=== PATIENT | male | born 1950 | race Caucasian/White ===

== ENCOUNTER 2017-06-04 10:17 | Inpatient (IN) | payer MEDICARE ==
[~2017-06-04] VITALS: Ht 172.7 cm; Wt 57.2 kg
--- NOTE | ~2017-06-04 | EKG ---
[place], [place] ELECTROCARDIOGRAM REPORT NAME: MARI HARRELL UNIT #: [id number] ROOM: 415 DOCTOR: DEMETRICE HARRIS,ROSARIO BIRTHDATE: [birth year] DOS: 06/04/2017 TIME: 1312 hours IMPRESSION: 1. Sinus rhythm. 2. Right bundle-branch block. 3. Lateral ST elevation, consider acute injury. 4. Normal QT interval. ROSARIO SURESH MD CM:EKGRPT:ELECTROCARDIOGRAM REPORT 1215 1321 ROSARIO SURESH MD
--- NOTE | ~2017-06-04 | EKG ---
[place], [place] ELECTROCARDIOGRAM REPORT NAME: MARI HARRELL UNIT #: [id number] ROOM: 415 DOCTOR: DEMETRICE HARRIS,ROSARIO BIRTHDATE: [birth year] DOS: 06/04/2017 TIME: 1041 hours. IMPRESSION: 1. Sinus rhythm. 2. Right bundle branch block. 3. Lateral ST elevation, consider acute injury. 4. Normal QT interval. ROSARIO SURESH MD CM:EKGRPT:ELECTROCARDIOGRAM REPORT 1213 1317 ROSARIO SURESH MD
--- NOTE | ~2017-06-04 | O ---
[place], [place] OPERATIVE NOTE NAME: MARI HARRELL UNIT #: [id number] ROOM: 415 DOCTOR: JORGE ALBERTO WASHBURN MD BIRTHDATE: [birth year] DOS: 06/06/2017 HISTORY OF PRESENT ILLNESS: The patient has presented with a chief complaint of atypical epigastric pain and eructation. The patient with pacemaker. PAST MEDICAL HISTORY: Hypertension, hyperlipidemia, and hemorrhoids. PAST SURGICAL HISTORY: Tonsillectomy and pacemaker. PROCEDURE: Today's procedure part of investigation is panendoscopy plus biopsy. PREMEDICATION: Versed and Diprivan. SCOPE: Olympus forward-viewing gastroscope Q10 video. REPORT: After putting the patient in left lateral and after application of lubricant to the scope, the scope was introduced. Thereafter, under direct visualization, advanced through the length of esophagus without difficulty. Gastric pouch was entered. Gastritis of mild degree seen. Duodenal bulb, second and third part within normal limits. Small Antral biopsy obtained for H. pylori. GI reflexion of the scope reveals cardia to be benign. Air was suctioned out. The patient was extubated and tolerated the procedure well. IMPRESSION: Mild gastritis. No hiatal hernia. No acute finding gastric and duodenal pouch. PLAN AND DISCUSSION: We will keep this patient on omeprazole 20 mg 1 every day to keep the possibilities of contribution from upper GI tract out of the picture. We already know that this patient has mild diffuse fatty infiltration of the liver. CT scan of the abdomen and chest diverticulosis and stents in the left common iliac and external iliac artery has been noticed. Prostatomegaly has been noticed. Supportive management as an outpatient would be recommended. There is no definitive finding in the CT scan neither on endoscopic evaluation. Wonder if he has diverticular issues in the splenic flexure to give him the sensation of distress in his left upper quadrant. [place], [place] OPERATIVE NOTE NAME: JULIO CESAREMMAMARI J UNIT #: [id number] ROOM: 415 DOCTOR: JORGE ALBERTO WASHBURN MD BIRTHDATE: [birth year] JORGE ALBERTO WASHBURN MD CM:OPRECORD:OPERATIVE NOTE 1314 1431 JORGE ALBERTO WASHBURN MD 06/06/17 1428 interface
--- NOTE | ~2017-06-04 | EKG ---
[place], [place] ELECTROCARDIOGRAM REPORT NAME: MARI HARRELL UNIT #: [id number] ROOM: [facility] DOCTOR: DEMETRICE HARRIS,ROSARIO BIRTHDATE: [birth year] DOS: 06/04/2017 TIME: 1626 hours. IMPRESSION: 1. Sinus rhythm. 2. Right bundle branch block. 3. Nonspecific ST-T changes. 4. Normal QT interval. ROSARIO SURESH MD CM:EKGRPT:ELECTROCARDIOGRAM REPORT 1200 1254 ROSARIO SURESH MD
--- NOTE | ~2017-06-04 | CON ---
[place], [place] REPORT OF CONSULTATION NAME: MARI HARRELL [facility] #: [id number] UNIT #: [id number] ROOM: 415 DOCTOR: MADDISON HARRISNARCISOCORIE BIRTHDATE: [birth year] DOS: 06/06/2017 HISTORY OF PRESENT ILLNESS: The patient is a 66-year-old who has presented with epigastric pain radiating to the left upper quadrant and periodically going to the back. The patient with a suggestion of persistent burping and eructation. The patient had to be admitted and Cardiology consult was addressed. PAST MEDICAL HISTORY: Hypertension, hyperlipidemia, and diabetes mellitus. This patient with peripheral vascular disease, cardiac dysrhythmia, hemorrhoid history. PAST SURGICAL HISTORY: Cardiac stents x 2, cardiac pacemaker, tonsillectomy. SOCIAL HISTORY: Passive smoker. Nonalcohol consumer. FAMILY HISTORY: Noncontributory. ALLERGIES: NITROGLYCERIN. MEDICATIONS: List has been reviewed including clopidogrel and aspirin. REVIEW OF SYSTEMS: HEENT: Denies double vision, blurred vision. RESPIRATORY: Denies shortness of breath. CARDIOVASCULAR: Denies acute typical chest pain. DIGESTIVE SYSTEM: Epigastric distress, eructation persistently. Left upper quadrant tenderness. PHYSICAL EXAMINATION: VITAL SIGNS: Stable, nontoxic. HEENT: Head normocephalic, nontraumatic. Mouth and buccal mucosa benign. NECK: Supple, no thyromegaly, no cervical lymphadenopathy. CHEST: Symmetric anatomy, equal expansion. No wheeze, no rhonchi. HEART: Normal sinus rhythm, no gallop, no murmur. ABDOMEN: Soft. No hepato-organomegaly, nonspecific tenderness left upper quadrant. No hepato-organomegaly. EXTREMITIES: No cyanosis, no pedal edema. NEUROLOGIC: Alert, oriented to time, place, person. IMPRESSION: Epigastric abdominal pain, atypical chest pain, persistent eructation, hypertension, hyperlipidemia, diabetes mellitus on clopidogrel and aspirin. LABORATORY DATA: Labs reviewed, records reviewed. CBC, initial H and H of 13.8 and 39. White blood cells 6.9. INR 0.9. Comprehensive metabolic panel, electrolyte balance, bilirubin 1.2. Chest x-ray normal, images of the chest. Troponin 0.015. CT scan of the chest was assessed. No acute findings, prostatomegaly, atrophy of the lower pole of the right kidney. Labs reviewed, records reviewed. Most recent troponin again remains normal. [place], [place] REPORT OF CONSULTATION [facility]: [id number] UNIT #: [id number] ROOM: 415 DOCTOR: JORGE ALBERTO WASHBURN MD BIRTHDATE: [birth year] PLAN: Consultation, Cardiology consultation has been reviewed and apparently they are planning to outpatient followup with the patient since no evidence of acute coronary syndrome was contemplated. Workup in progress. EGD today. JORGE ALBERTO WASHBURN MD CM:CONSTR:REPORT OF CONSULTATION 1230 06/07/17 0016 interface
--- NOTE | ~2017-06-04 | CON ---
[place], [place] REPORT OF CONSULTATION NAME[id number] UNIT #: [id number] ROOM: 415 [facility]: [birth year] DOS: 06/06/2017 CARDIOLOGY CONSULTATION HISTORY OF PRESENT ILLNESS: The patient came in with history of left upper quadrant discomfort and denies for any chest discomfort. No dyspnea, no syncope. The patient found to be hypotensive and we adjust the medications. Now, the patient has tachycardia rate of 110-120, readjusted the beta-macy and metoprolol tartrate 50 mg twice a day, explained to the patient that he consistently should take the medication and optimally reduce the dose of metoprolol to 12.5 mg daily. The patient had GI workup done and Gastroenterology doctor, Dr. Lopez, is going to see. The patient may have the scope done. No syncope or presyncope. The patient denies for any smoking or use any tobacco products. The patient does have permanent pacemaker, function is good. No chills. Denies any dyspnea. The patient came to the Emergency Room. The patient is on baby aspirin, initially 324 and the chest x-ray initially was unremarkable. PAST MEDICAL HISTORY: The patient has a history of hemorrhoids, dyslipidemia, hypertension, permanent pacemaker. PAST SURGICAL HISTORY: The patient also has tonsillectomy in the past. SOCIAL HISTORY: The patient denies any illicit drugs. No tobacco use. No alcohol. Unremarkable. FAMILY HISTORY: Also noncontributory as per the cardiovascular status concern. The patient cannot take nitroglycerin, it drops the pressure significantly. PHYSICAL EXAMINATION: VITAL SIGNS: Heart rate is 105, blood pressure is stable, 115/47, 130/56, 120/56. NECK: No jugular venous distension noted. No carotid bruits. Neck is supple. LUNGS: No rales. ABDOMEN: Soft. HEART: S1 and S2 regular. No gallop. EXTREMITIES: No peripheral edema noted. Posterior tibialis 2+. No focal neurological deficits. Denies for any pain in the back of his legs with the walking. RECTAL AND GENITAL: Deferred unrelated. EKG, sinus rhythm, right bundle branch block. No evidence of transmural infarction, basically remains sinus rhythm. IMPRESSION: No evidence of acute coronary syndrome. No congestive heart failure. Permanent pacemaker, borderline low blood pressure probably iatrogenic and low volume. Once the fluids given and adjust the medication, pressure is stabilized. [place], [place] REPORT OF CONSULTATION NAME: MARI HARRELL UNIT #: [id number] ROOM: [facility] DOCTOR: OLGA HARRIS [facility] BIRTHDATE: [birth year] PLAN: Optimize the medical therapy and also optimize the heart rate, explained to the patient. We will follow the patient as an outpatient for further management. No further cardiovascular complaint at this time. This patient is an established patient for me, I have seen in the past. Thank you very for asking me to see the patient. We will follow the patient. TIFFANY ESPINOZA MD CM:CONSTR:REPORT OF CONSULTATION 06/06/17 0815 interface
--- NOTE | ~2017-06-04 | EKG ---
[place], [place] ELECTROCARDIOGRAM REPORT NAME: MARI HARRELL UNIT #: [id number] ROOM: 415 DOCTOR: DEMETRICE HARRIS,ROSARIO BIRTHDATE: [birth year] DOS: 06/05/2017 TIME: 8:07 a.m. IMPRESSION: 1. Sinus rhythm. 2. Right bundle-branch block. 3. Anterolateral ST elevation, consider acute injury. 4. Normal QT interval. ROSARIO SURESH MD CM:EKGRPT:ELECTROCARDIOGRAM REPORT 1147 1211 ROSARIO SURESH MD
[~2017-06-04 10:17] MED LIST: ASPIRIN81 M1 PO; DAYPRO600 M1 PO; IMDUR30 MG; LISINOPRIL20 MG PO; LOPRESSOR25 MG PO; MOTRIN800 MG PO; PLAVIX75 MG PO; PLETAL100 MG PO; PRAVASTATIN SOD40 MG PO; ROBAXIN750 MG PO; VICODIN 5/500 505 MG PO
[2017-06-04 10:23] VITALS: BP 148/71
[2017-06-04 10:45] LABS: BASO % 0.6 % (0.0-1.0); EOS # 0.3 10*3/uL (0.0-0.4); EOS % 4.5 % (1.0-4.0); HEMATOCRIT 39.1 % (42.0-52.0); HEMOGLOBIN 13.8 g/dl (14.0-18.0); LYMPH % 15.1 % (27.0-41.0); MEAN CELL VOLUME 88.1 fl (80.0-94.0); MEAN CORPUSCULAR HGB 31.1 pg (27.0-31.0); MEAN CORPUSCULAR HGB CONC 35.3 g/dl (33.0-37.0); MEAN PLATELET VOLUME 9.6 fl (9.6-12.3); MONO # 0.6 10*3/uL (0.1-1.0); MONO % 8.2 % (3.0-9.0); NEUT # 4.9 10*3/uL (2.3-7.9); NEUT % 71.3 % (47.0-73.0); PLATELET COUNT AUTOMATED 183 10*3/uL (130-400); RED BLOOD COUNT 4.44 10*6/uL (4.50-5.90); RED CELL DISTRI WIDTH 12.9 % (0-14.5); WHITE BLOOD COUNT 6.9 10*3/uL (4.8-10.8)
[2017-06-04 10:55] LABS: INTERNATIONAL NORM RATIO 0.9 (2.0-3.5)
[2017-06-04 11:02] LABS: ALKALINE PHOSPHATASE 94 U/L (45-117); BUN 18 mg/dl (7-24); CHLORIDE 96 mmol/L (98-107); CREATININE 1.23 mg/dL (0.70-1.30); POTASSIUM 4.7 mmol/L (3.5-5.1); SGOT/AST 25 IU/L (3-35); SGPT/ALT 40 U/L (12-78); SODIUM 132 mmol/L (136-145); TOTAL PROTEIN 7.2 gm/dL (6.4-8.2)
[2017-06-04 11:10] LABS: TROPONIN I < 0.015 ng/ml (<0.045)
[2017-06-04 11:34] VITALS: BP 151/72
[2017-06-04 12:05] VITALS: BP 157/73
[2017-06-04 12:13] VITALS: BP 157/73
[2017-06-04 16:00] VITALS: BP 137/81
[2017-06-04 20:00] VITALS: BP 104/51
[2017-06-05] VITALS (7 sets, daily range): BP systolic 56–126; BP diastolic 40–71
[2017-06-05 05:57] LABS: BASO % 0.6 % (0.0-1.0); EOS # 0.3 10*3/uL (0.0-0.4); EOS % 4.5 % (1.0-4.0); HEMATOCRIT 34.7 % (42.0-52.0); HEMOGLOBIN 12.6 g/dl (14.0-18.0); LYMPH # 0.9 10*3/uL (1.3-4.4); LYMPH % 13.6 % (27.0-41.0); MEAN CELL VOLUME 88.1 fl (80.0-94.0); MEAN CORPUSCULAR HGB CONC 36.3 g/dl (33.0-37.0); MEAN PLATELET VOLUME 9.9 fl (9.6-12.3); MONO # 0.5 10*3/uL (0.1-1.0); MONO % 7.3 % (3.0-9.0); NEUT % 73.9 % (47.0-73.0); PLATELET COUNT AUTOMATED 179 10*3/uL (130-400); RED BLOOD COUNT 3.94 10*6/uL (4.50-5.90); RED CELL DISTRI WIDTH 12.7 % (0-14.5); WHITE BLOOD COUNT 6.7 10*3/uL (4.8-10.8)
[2017-06-05 06:10] LABS: ALBUMIN 3.3 gm/dl (3.1-4.5); ALKALINE PHOSPHATASE 79 U/L (45-117); BUN 25 mg/dl (7-24); CHLORIDE 98 mmol/L (98-107); CHOLESTEROL 151 mg/dL (<200); CREATININE 1.51 mg/dL (0.70-1.30); HDL CHOLESTEROL 41 mg/dl (40-60); LDL CHOLESTEROL 78 mg/dL (9-159); LIPASE 147 U/L (73-393); PHOSPHOROUS 4.7 mg/dL (2.5-4.9); POTASSIUM 5.5 mmol/L (3.5-5.1); SGOT/AST 22 IU/L (3-35); SGPT/ALT 31 U/L (12-78); SODIUM 132 mmol/L (136-145); TOTAL PROTEIN 6.2 gm/dL (6.4-8.2); TRIGLYCERIDES 158 mg/dl (<150); VLDL CHOLESTEROL 32 mg/dL (6-40)
[2017-06-05 06:32] LABS: ACT PARTIAL THROMBO TIME 21.4 SECONDS (20.8-31.5)
[2017-06-05 07:34] LABS: VITAMIN D, 25-HYDROXY 11.6 ng/mL (30-100)
[2017-06-06] VITALS (9 sets, daily range): BP systolic 81–140; BP diastolic 34–71
[2017-06-06 06:02] LABS: BASO % 0.8 % (0.0-1.0); EOS # 0.4 10*3/uL (0.0-0.4); EOS % 7.6 % (1.0-4.0); HEMATOCRIT 34.3 % (42.0-52.0); LYMPH # 1.2 10*3/uL (1.3-4.4); LYMPH % 24.5 % (27.0-41.0); MEAN CELL VOLUME 88.9 fl (80.0-94.0); MEAN CORPUSCULAR HGB 31.1 pg (27.0-31.0); MONO # 0.5 10*3/uL (0.1-1.0); MONO % 9.9 % (3.0-9.0); NEUT # 2.8 10*3/uL (2.3-7.9); PLATELET COUNT AUTOMATED 162 10*3/uL (130-400); RED BLOOD COUNT 3.86 10*6/uL (4.50-5.90); RED CELL DISTRI WIDTH 12.9 % (0-14.5); WHITE BLOOD COUNT 4.9 10*3/uL (4.8-10.8)
[2017-06-06 06:28] LABS: ALBUMIN 3.4 gm/dl (3.1-4.5); ALKALINE PHOSPHATASE 75 U/L (45-117); BUN 25 mg/dl (7-24); CHLORIDE 103 mmol/L (98-107); CREATININE 1.21 mg/dL (0.70-1.30); SGOT/AST 17 IU/L (3-35); SGPT/ALT 28 U/L (12-78); SODIUM 136 mmol/L (136-145); TOTAL PROTEIN 5.9 gm/dL (6.4-8.2)
[2017-06-06 07:07] LABS: POTASSIUM 4.5 mmol/L (3.5-5.1)
[2017-06-06] MEDS ORDERED: METFORMIN500 MG PO (16:02)
[2017-06-06] MEDS ORDERED: FLOMAX0.4 MG PO (16:02)
[2017-06-06] MEDS ORDERED: LISINOPRIL2.5 MG PO (16:02)
[2017-06-06] MEDS ORDERED: OMEPRAZOLE MAGN20 MG PO (16:02)
== END 2017-06-06 17:17 | disposition home or self-care (01) | DRG 313 ==
LOC: ED 10:17 → 4E 11:29 → EDHOLD 11:29 → 4E 11:36
PROVIDERS: Internal Medicine; Internal Medicine Gastroenterology; Student in an Organized Health Care Education/Training Program
PROC: 0DB68ZX Excision of Stomach, Via Natural or Artificial Opening Endoscopic, Diagnostic (ICD-10-PCS; principal; 2017-06-06)
DX: R07.89 Other chest pain (principal); I25.10 Atherosclerotic heart disease of native coronary artery without angina pectoris; I42.9 Cardiomyopathy, unspecified; E11.51 Type 2 diabetes mellitus with diabetic peripheral angiopathy without gangrene; I11.0 Hypertensive heart disease with heart failure; I95.9 Hypotension, unspecified; I50.22 Chronic systolic (congestive) heart failure; E11.65 Type 2 diabetes mellitus with hyperglycemia; E83.41 Hypermagnesemia; E87.8 Other disorders of electrolyte and fluid balance, not elsewhere classified; E87.1 Hypo-osmolality and hyponatremia; Z68.1 Body mass index [BMI] 19.9 or less, adult; R07.81 Pleurodynia; R14.2 Eructation; D64.9 Anemia, unspecified; E80.6 Other disorders of bilirubin metabolism; D72.810 Lymphocytopenia; K29.70 Gastritis, unspecified, without bleeding; K64.9 Unspecified hemorrhoids; E78.5 Hyperlipidemia, unspecified; N40.0 Benign prostatic hyperplasia without lower urinary tract symptoms; R63.4 Abnormal weight loss; K57.90 Diverticulosis of intestine, part unspecified, without perforation or abscess without bleeding; K76.0 Fatty (change of) liver, not elsewhere classified; K21.9 Gastro-esophageal reflux disease without esophagitis; J44.9 Chronic obstructive pulmonary disease, unspecified; K59.00 Constipation, unspecified; Z95.5 Presence of coronary angioplasty implant and graft; Z95.0 Presence of cardiac pacemaker; Z87.891 Personal history of nicotine dependence; I25.2 Old myocardial infarction; Z82.49 Family history of ischemic heart disease and other diseases of the circulatory system; Z90.49 Acquired absence of other specified parts of digestive tract; Z82.0 Family history of epilepsy and other diseases of the nervous system; Z88.8 Allergy status to other drugs, medicaments and biological substances; Z79.899 Other long term (current) drug therapy; Z79.02 Long term (current) use of antithrombotics/antiplatelets

== ENCOUNTER → 2017-06-14 | Outpatient (CLI) | payer SELFPAY ==
[~2017-06-14] MED LIST changes: +FLOMAX0.4 MG PO; +LISINOPRIL2.5 MG PO; +METFORMIN500 MG PO; +OMEPRAZOLE MAGN20 MG PO
== END | disposition home or self-care (01) ==
LOC: RESCLI 03:29
DX: Z09 Encounter for follow-up examination after completed treatment for conditions other than malignant neoplasm (principal); K92.2 Gastrointestinal hemorrhage, unspecified; K59.00 Constipation, unspecified; E78.5 Hyperlipidemia, unspecified; E11.9 Type 2 diabetes mellitus without complications; K21.9 Gastro-esophageal reflux disease without esophagitis; I73.9 Peripheral vascular disease, unspecified; N40.1 Benign prostatic hyperplasia with lower urinary tract symptoms; I25.10 Atherosclerotic heart disease of native coronary artery without angina pectoris; I10 Essential (primary) hypertension; R63.4 Abnormal weight loss; Z76.89 Persons encountering health services in other specified circumstances

== ENCOUNTER → 2017-06-20 | Outpatient (CLI) | payer MEDICARE ==
[2017-06-20 10:15] LABS: BASO # 0.1 10*3/uL (0.0-0.1); EOS # 0.3 10*3/uL (0.0-0.4); EOS % 5.6 % (1.0-4.0); HEMATOCRIT 33.4 % (42.0-52.0); HEMOGLOBIN 12.1 g/dl (14.0-18.0); LYMPH % 16.2 % (27.0-41.0); MEAN CELL VOLUME 88.6 fl (80.0-94.0); MEAN CORPUSCULAR HGB 32.1 pg (27.0-31.0); MEAN CORPUSCULAR HGB CONC 36.2 g/dl (33.0-37.0); MEAN PLATELET VOLUME 10.1 fl (9.6-12.3); MONO # 0.5 10*3/uL (0.1-1.0); MONO % 8.7 % (3.0-9.0); NEUT # 4.2 10*3/uL (2.3-7.9); NEUT % 68.2 % (47.0-73.0); PLATELET COUNT AUTOMATED 203 10*3/uL (130-400); RED BLOOD COUNT 3.77 10*6/uL (4.50-5.90); RED CELL DISTRI WIDTH 13.1 % (0-14.5); WHITE BLOOD COUNT 6.1 10*3/uL (4.8-10.8)
== END | disposition home or self-care (01) ==
LOC: LAB 09:17
PROVIDERS: Internal Medicine
DX: K92.2 Gastrointestinal hemorrhage, unspecified (principal)

== ENCOUNTER → 2017-06-21 | Outpatient (CLI) | payer SELFPAY | END | disposition home or self-care (01) | LOC: RESCLI 03:52 | DX: E11.9 Type 2 diabetes mellitus without complications (principal); K59.00 Constipation, unspecified; E78.5 Hyperlipidemia, unspecified; K21.9 Gastro-esophageal reflux disease without esophagitis; I73.9 Peripheral vascular disease, unspecified; N40.1 Benign prostatic hyperplasia with lower urinary tract symptoms; I25.10 Atherosclerotic heart disease of native coronary artery without angina pectoris; I10 Essential (primary) hypertension; R63.4 Abnormal weight loss; K64.9 Unspecified hemorrhoids ==

== ENCOUNTER 2017-08-24 09:54 | Inpatient (IN) | payer MEDICARE ==
[~2017-08-24] VITALS: Ht 172.7 cm; Wt 53.2 kg
--- NOTE | ~2017-08-24 | O ---
[place], [place] OPERATIVE NOTE NAME: MARI HARRELL UNIT #: [id number] ROOM: 515 DOCTOR: JORGE ALBERTO WASHBURN MD BIRTHDATE: [birth year] DOS: 08/26/2017 INDICATIONS: The patient has presented with dysuria, abdominal pain and meanwhile, he has been find on CT scan, suspected the sigmoid colon mass. His white blood cell was 14. H and H of 12 and 36. Lactic acid was 3.1. CT scan of the abdomen had been reviewed and concerns addressed. Therefore, a colonoscopy has been organized. PAST MEDICAL HISTORY: Gastroesophageal reflux, BPH, hypertension, cardiac dysrhythmia. PAST SURGICAL HISTORY: Pacemaker, cardiac stent, tonsillectomy. SOCIAL HISTORY: Has stopped smoking, nonalcohol consumer. FAMILY HISTORY: Noncontributory. ALLERGIES: TO NITROGLYCERIN. MEDICATIONS: List has been reviewed. PROCEDURE: Today's procedure part of investigation is colonoscopy plus polypectomy. PREMEDICATION: Versed and propofol. SCOPE: Olympus folding colonoscope 10L video. REPORT: After putting the patient in left lateral position and application of lubricant to the scope, the scope was introduced. Thereafter, under direct visualization, advanced through the length of colon with some difficulty. Difficulty with not only extreme tortuosity of sigmoid colon, also liquid stool throughout the entire colon. Visualization became practically impossible mid transverse colon and onward. Polypoid lesion sessile in character also with piecemeal polypectomy from mid transverse colon removed. The patient's air was then suctioned out. No obstruction in sigmoid colon seen, tolerated the procedure well. IMPRESSION: Retained stool, tortuous colon, redundant colon. Sessile polypoid lesion in mid transverse colon, status post piecemeal polypectomy. PLAN AND DISCUSSION: Supportive management. We are going to see how he clinically does and in future if he complies, we are going to organize a colonoscopy while off of the aspirin and antiplatelets stable. Next colonoscopy in 10 years unless patient has symptoms for which follow-up should be sooner. [place], [place] OPERATIVE NOTE NAME: MARI HARRELL UNIT #: [id number] ROOM: 515 DOCTOR: JORGE ALBERTO WASHBURN MD BIRTHDATE: [birth year] JORGE ALBERTO WASHBURN MD CM:NANDAORD:OPERATIVE NOTE 1520 1545 JORGE ALBERTO WASHBURN MD 08/31/17 1700 interface
[2017-08-24 09:54] VITALS: BP 105/51
[2017-08-24 10:19] LABS: BASO % 0.2 % (0.0-1.0); EOS % 0.1 % (1.0-4.0); HEMATOCRIT 36.6 % (42.0-52.0); HEMOGLOBIN 12.8 g/dl (14.0-18.0); LYMPH # 0.3 10*3/uL (1.3-4.4); LYMPH % 2.2 % (27.0-41.0); MEAN CELL VOLUME 91.3 fl (80.0-94.0); MEAN CORPUSCULAR HGB 31.9 pg (27.0-31.0); MEAN PLATELET VOLUME 10.1 fl (9.6-12.3); MONO # 1.2 10*3/uL (0.1-1.0); MONO % 7.5 % (3.0-9.0); NEUT # 13.7 10*3/uL (2.3-7.9); NEUT % 89.2 % (47.0-73.0); PLATELET COUNT AUTOMATED 182 10*3/uL (130-400); RED BLOOD COUNT 4.01 10*6/uL (4.50-5.90); RED CELL DISTRI WIDTH 13.2 % (0-14.5); WHITE BLOOD COUNT 15.4 10*3/uL (4.8-10.8)
[2017-08-24 10:28] LABS: ACT PARTIAL THROMBO TIME 25.9 SECONDS (20.8-31.5); INTERNATIONAL NORM RATIO 0.9 (2.0-3.5)
[2017-08-24 10:37] LABS: ALBUMIN 3.6 gm/dl (3.1-4.5); ALKALINE PHOSPHATASE 169 U/L (45-117); BUN 31 mg/dl (7-24); CHLORIDE 90 mmol/L (98-107); CREATININE 1.29 mg/dL (0.70-1.30); POTASSIUM 4.2 mmol/L (3.5-5.1); SGOT/AST 49 IU/L (3-35); SGPT/ALT 169 U/L (12-78); SODIUM 127 mmol/L (136-145); TOTAL PROTEIN 7.4 gm/dL (6.4-8.2)
[2017-08-24 10:40] LABS: TROPONIN I < 0.015 ng/ml (<0.045)
[2017-08-24 11:00] LABS: BILIRUBIN 2+ (NEGATIVE); BLOOD 3+ (NEGATIVE); CLARITY CLOUDY (CLEAR); COLOR YELLOW (YELLOW); GLUCOSE NEGATIVE (NEGATIVE); KETONE 3+ (NEGATIVE); LEUKO ESTERASE 2+ (NEGATIVE); NITRITE NEGATIVE (NEGATIVE); PH 5.5 (5.0-9.0); SPECIFIC GRAVITY >= 1.030 (1.005-1.030)
[2017-08-24 11:11] LABS: BACTERIA 4+; RBC 21-30 rbc/hpf (0-2); WBC TNTC wbc/hpf (0-5)
[2017-08-24 12:14] VITALS: BP 132/62
[2017-08-24] MEDS ORDERED: CENTRUM SILVER1 EAC3 PO (12:37)
[2017-08-24] MEDS ORDERED: METFORMIN850 MG PO (12:39)
[2017-08-24] MEDS ORDERED: ASPIRIN CHEWABL81 MG PO (12:41)
[2017-08-24] MEDS ORDERED: ADVIL,MOTRIN,R200 MG PO (12:49)
[2017-08-24 16:00] VITALS: BP 108/58
[2017-08-24 20:00] VITALS: BP 155/49
[2017-08-25] VITALS: BP 147/67
[2017-08-25 07:23] LABS: BASO % 0.1 % (0.0-1.0); EOS % 0.1 % (1.0-4.0); HEMATOCRIT 33.2 % (42.0-52.0); HEMOGLOBIN 11.5 g/dl (14.0-18.0); LYMPH # 0.4 10*3/uL (1.3-4.4); LYMPH % 3.9 % (27.0-41.0); MEAN CELL VOLUME 90.5 fl (80.0-94.0); MEAN CORPUSCULAR HGB 31.3 pg (27.0-31.0); MEAN CORPUSCULAR HGB CONC 34.6 g/dl (33.0-37.0); MEAN PLATELET VOLUME 10.2 fl (9.6-12.3); MONO % 10.4 % (3.0-9.0); NEUT # 7.8 10*3/uL (2.3-7.9); PLATELET COUNT AUTOMATED 164 10*3/uL (130-400); RED BLOOD COUNT 3.67 10*6/uL (4.50-5.90); RED CELL DISTRI WIDTH 13.1 % (0-14.5); WHITE BLOOD COUNT 9.2 10*3/uL (4.8-10.8)
[2017-08-25 07:41] LABS: CHLORIDE 95 mmol/L (98-107); CREATININE 0.86 mg/dL (0.70-1.30); PHOSPHOROUS 1.6 mg/dL (2.5-4.9); POTASSIUM 4.5 mmol/L (3.5-5.1); SODIUM 130 mmol/L (136-145)
[2017-08-25 07:47] LABS: BUN 16 mg/dl (7-24)
[2017-08-25 08:00] VITALS: BP 169/69
[2017-08-25 12:00] VITALS: BP 122/56
[2017-08-25 16:00] VITALS: BP 155/77
[2017-08-25 20:00] VITALS: BP 172/81
[2017-08-26] VITALS (8 sets, daily range): BP systolic 128–173; BP diastolic 65–85
[2017-08-26 06:41] LABS: BASO % 0.3 % (0.0-1.0); EOS # 0.1 10*3/uL (0.0-0.4); EOS % 1.3 % (1.0-4.0); HEMATOCRIT 31.5 % (42.0-52.0); HEMOGLOBIN 10.7 g/dl (14.0-18.0); LYMPH # 0.6 10*3/uL (1.3-4.4); LYMPH % 8.1 % (27.0-41.0); MEAN CELL VOLUME 90.8 fl (80.0-94.0); MEAN CORPUSCULAR HGB 30.8 pg (27.0-31.0); MEAN PLATELET VOLUME 10.2 fl (9.6-12.3); MONO # 1.1 10*3/uL (0.1-1.0); MONO % 15.4 % (3.0-9.0); NEUT # 5.3 10*3/uL (2.3-7.9); NEUT % 74.6 % (47.0-73.0); PLATELET COUNT AUTOMATED 162 10*3/uL (130-400); RED BLOOD COUNT 3.47 10*6/uL (4.50-5.90); RED CELL DISTRI WIDTH 13.1 % (0-14.5); WHITE BLOOD COUNT 7.1 10*3/uL (4.8-10.8)
[2017-08-26 07:14] LABS: BUN 14 mg/dl (7-24); CHLORIDE 99 mmol/L (98-107); CREATININE 0.82 mg/dL (0.70-1.30); POTASSIUM 4.5 mmol/L (3.5-5.1); SODIUM 133 mmol/L (136-145)
[2017-08-26] MEDS ORDERED: CIPRO500 MG PO (16:25)
== END 2017-08-26 18:00 | disposition home or self-care (01) | DRG 872 ==
LOC: ED 09:54 → EDHOLD 11:17 → 5E 11:17
PROVIDERS: Emergency Medicine; Family Medicine; Internal Medicine
PROC: 0DBL8ZZ Excision of Transverse Colon, Via Natural or Artificial Opening Endoscopic (ICD-10-PCS; principal; 2017-08-26)
DX: A41.9 Sepsis, unspecified organism (principal); E11.51 Type 2 diabetes mellitus with diabetic peripheral angiopathy without gangrene; E87.2 Acidosis; E87.8 Other disorders of electrolyte and fluid balance, not elsewhere classified; E87.1 Hypo-osmolality and hyponatremia; N39.0 Urinary tract infection, site not specified; N40.0 Benign prostatic hyperplasia without lower urinary tract symptoms; K21.9 Gastro-esophageal reflux disease without esophagitis; E11.65 Type 2 diabetes mellitus with hyperglycemia; R79.89 Other specified abnormal findings of blood chemistry; I10 Essential (primary) hypertension; R65.20 Severe sepsis without septic shock; E78.5 Hyperlipidemia, unspecified; R31.9 Hematuria, unspecified; R74.0 Nonspecific elevation of levels of transaminase and lactic acid dehydrogenase [LDH]; R00.0 Tachycardia, unspecified; E83.41 Hypermagnesemia; E80.6 Other disorders of bilirubin metabolism; Z79.899 Other long term (current) drug therapy; Z79.84 Long term (current) use of oral hypoglycemic drugs; Z79.4 Long term (current) use of insulin; Z79.82 Long term (current) use of aspirin; Z88.8 Allergy status to other drugs, medicaments and biological substances; Z95.0 Presence of cardiac pacemaker; Z82.0 Family history of epilepsy and other diseases of the nervous system; Z82.49 Family history of ischemic heart disease and other diseases of the circulatory system; Z83.3 Family history of diabetes mellitus; Z80.9 Family history of malignant neoplasm, unspecified; I25.2 Old myocardial infarction

== ENCOUNTER 2017-08-29 02:09 | Emergency (ER) | payer MEDICARE ==
[~2017-08-29] VITALS: Ht 172.7 cm; Wt 53.1 kg
[~2017-08-29 02:09] MED LIST changes: +ADVIL,MOTRIN,R200 MG PO; +ASPIRIN CHEWABL81 MG PO; +CENTRUM SILVER1 EAC3 PO; +CIPRO500 MG PO; +METFORMIN850 MG PO
[2017-08-29 02:12] VITALS: BP 145/78
[2017-08-29 02:48] LABS: BASO % 0.5 % (0.0-1.0); EOS # 0.2 10*3/uL (0.0-0.4); EOS % 3.7 % (1.0-4.0); HEMATOCRIT 31.5 % (42.0-52.0); HEMOGLOBIN 11.3 g/dl (14.0-18.0); LYMPH # 0.8 10*3/uL (1.3-4.4); LYMPH % 13.4 % (27.0-41.0); MEAN CELL VOLUME 86.8 fl (80.0-94.0); MEAN CORPUSCULAR HGB 31.1 pg (27.0-31.0); MEAN CORPUSCULAR HGB CONC 35.9 g/dl (33.0-37.0); MEAN PLATELET VOLUME 9.1 fl (9.6-12.3); MONO # 0.7 10*3/uL (0.1-1.0); NEUT # 3.9 10*3/uL (2.3-7.9); NEUT % 68.9 % (47.0-73.0); PLATELET COUNT AUTOMATED 263 10*3/uL (130-400); RED BLOOD COUNT 3.63 10*6/uL (4.50-5.90); RED CELL DISTRI WIDTH 12.7 % (0-14.5); WHITE BLOOD COUNT 5.7 10*3/uL (4.8-10.8)
[2017-08-29 03:03] LABS: ALBUMIN 2.7 gm/dl (3.1-4.5); ALKALINE PHOSPHATASE 112 U/L (45-117); BUN 15 mg/dl (7-24); CHLORIDE 96 mmol/L (98-107); CREATININE 1.01 mg/dL (0.70-1.30); LIPASE 94 U/L (73-393); POTASSIUM 3.9 mmol/L (3.5-5.1); SGOT/AST 25 IU/L (3-35); SGPT/ALT 56 U/L (12-78); SODIUM 133 mmol/L (136-145); TOTAL PROTEIN 5.8 gm/dL (6.4-8.2); TROPONIN I < 0.015 ng/ml (<0.045)
[2017-08-29 04:15] LABS: BILIRUBIN NEGATIVE (NEGATIVE); BLOOD NEGATIVE (NEGATIVE); CLARITY CLEAR (CLEAR); COLOR YELLOW (YELLOW); GLUCOSE NEGATIVE (NEGATIVE); KETONE TRACE (NEGATIVE); LEUKO ESTERASE NEGATIVE (NEGATIVE); NITRITE NEGATIVE (NEGATIVE); PH 7.5 (5.0-9.0); UROBILINOGEN 0.2 E.U./dl (0.2-1.0)
[2017-08-29 04:22] LABS: WBC 0-2 wbc/hpf (0-5)
[2017-08-29] MEDS ORDERED: NORCO 5-325 TA1 EACH PO (04:42)
[2017-08-29] MEDS ORDERED: MIRALAX POWDER255 G1 PO (04:42)
== END 2017-08-29 04:45 | disposition home or self-care (01) ==
LOC: ED 02:09
PROVIDERS: Emergency Medicine Emergency Medical Services
DX: R10.9 Unspecified abdominal pain (principal); I10 Essential (primary) hypertension; E78.5 Hyperlipidemia, unspecified; I25.2 Old myocardial infarction; E11.9 Type 2 diabetes mellitus without complications; K21.9 Gastro-esophageal reflux disease without esophagitis; Z88.8 Allergy status to other drugs, medicaments and biological substances; Z79.899 Other long term (current) drug therapy; Z79.82 Long term (current) use of aspirin; Z87.891 Personal history of nicotine dependence

== ENCOUNTER → 2017-09-13 | Outpatient (CLI) | payer MEDICARE ==
[~2017-09-13] MED LIST changes: +MIRALAX POWDER255 G1 PO; +NORCO 5-325 TA1 EACH PO
[2017-09-13 16:03] LABS: BASO % 0.4 % (0.0-1.0); EOS # 0.2 10*3/uL (0.0-0.4); EOS % 3.2 % (1.0-4.0); HEMATOCRIT 38.2 % (42.0-52.0); HEMOGLOBIN 13.3 g/dl (14.0-18.0); LYMPH # 1.1 10*3/uL (1.3-4.4); LYMPH % 15.5 % (27.0-41.0); MEAN CELL VOLUME 89.5 fl (80.0-94.0); MEAN CORPUSCULAR HGB 31.1 pg (27.0-31.0); MEAN CORPUSCULAR HGB CONC 34.8 g/dl (33.0-37.0); MEAN PLATELET VOLUME 9.6 fl (9.6-12.3); MONO # 0.8 10*3/uL (0.1-1.0); MONO % 10.7 % (3.0-9.0); NEUT # 5.1 10*3/uL (2.3-7.9); NEUT % 69.9 % (47.0-73.0); PLATELET COUNT AUTOMATED 258 10*3/uL (130-400); RED BLOOD COUNT 4.27 10*6/uL (4.50-5.90); RED CELL DISTRI WIDTH 13.8 % (0-14.5); WHITE BLOOD COUNT 7.3 10*3/uL (4.8-10.8)
[2017-09-13 16:20] LABS: ALBUMIN 4.2 gm/dl (3.1-4.5); ALKALINE PHOSPHATASE 77 U/L (45-117); BUN 24 mg/dl (7-24); CHLORIDE 96 mmol/L (98-107); CREATININE 1.16 mg/dL (0.70-1.30); POTASSIUM 4.7 mmol/L (3.5-5.1); SGOT/AST 7 IU/L (3-35); SGPT/ALT 25 U/L (12-78); SODIUM 131 mmol/L (136-145); TOTAL PROTEIN 7.5 gm/dL (6.4-8.2)
== END | disposition home or self-care (01) ==
LOC: RESCLI 01:31
PROVIDERS: Internal Medicine
DX: Z09 Encounter for follow-up examination after completed treatment for conditions other than malignant neoplasm (principal); I10 Essential (primary) hypertension; I25.10 Atherosclerotic heart disease of native coronary artery without angina pectoris; E11.9 Type 2 diabetes mellitus without complications; E78.5 Hyperlipidemia, unspecified; I73.9 Peripheral vascular disease, unspecified; K21.9 Gastro-esophageal reflux disease without esophagitis; K92.2 Gastrointestinal hemorrhage, unspecified; K59.00 Constipation, unspecified; N40.1 Benign prostatic hyperplasia with lower urinary tract symptoms; R63.4 Abnormal weight loss; Z87.891 Personal history of nicotine dependence

== ENCOUNTER 2017-11-01 13:34 | Inpatient (IN) | payer MEDICARE ==
[~2017-11-01] VITALS: Ht 162.6 cm; Wt 50.9 kg
--- NOTE | ~2017-11-01 | EKG ---
[place], [place] ELECTROCARDIOGRAM REPORT NAME: MARI HARRELL UNIT #: [id number] ROOM: 405 DOCTOR: DIANA DRAFT REPORT BIRTHDATE: [birth year] [facility] Test Date: 2017-11-01 Test Time: 14:33:58 Pat Name: MARI HARRELL Department: Room: 405 Gender: M [employer] Up Worker: : 1950 Requested By: BRIE BRIZUELA Order Number: [id number] Reading MD: Michael Rodriguez MD Measurements Intervals [place] Rate: 68 P: 63 DC: 166 QRS: 69 QRSD: 132 T: 61 QT: 424 QTc: 451 Interpretive Statements Sinus rhythm Right bundle branch block Electronically Signed On 11-01-2017 20:37:39 PDT by Michael Rodriguez MD CM:EKGRPT:ELECTROCARDIOGRAM REPORT 1433 36 BRIE BALLESTEROS DRAFT REPORT BRIE BRIZUELA DO
[2017-11-01 13:42] VITALS: BP 159/74
[2017-11-01 14:42] LABS: BASO % 0.5 % (0.0-1.0); EOS # 0.3 10*3/uL (0.0-0.4); EOS % 4.7 % (1.0-4.0); HEMATOCRIT 33.6 % (42.0-52.0); HEMOGLOBIN 12.1 g/dl (14.0-18.0); LYMPH # 0.9 10*3/uL (1.3-4.4); LYMPH % 14.6 % (27.0-41.0); MEAN CELL VOLUME 88.9 fl (80.0-94.0); MEAN PLATELET VOLUME 9.3 fl (9.6-12.3); MONO # 0.5 10*3/uL (0.1-1.0); MONO % 8.8 % (3.0-9.0); NEUT # 4.2 10*3/uL (2.3-7.9); NEUT % 71.1 % (47.0-73.0); PLATELET COUNT AUTOMATED 231 10*3/uL (130-400); RED BLOOD COUNT 3.78 10*6/uL (4.50-5.90); RED CELL DISTRI WIDTH 13.4 % (0-14.5); WHITE BLOOD COUNT 5.9 10*3/uL (4.8-10.8)
[2017-11-01 14:50] LABS: INTERNATIONAL NORM RATIO 0.9 (2.0-3.5)
[2017-11-01 14:58] LABS: ALBUMIN 4.1 gm/dl (3.1-4.5); ALKALINE PHOSPHATASE 78 U/L (45-117); BUN 26 mg/dl (7-24); CHLORIDE 99 mmol/L (98-107); CREATININE 0.93 mg/dL (0.70-1.30); LIPASE 147 U/L (73-393); POTASSIUM 4.3 mmol/L (3.5-5.1); SGOT/AST 16 IU/L (3-35); SGPT/ALT 24 U/L (12-78); SODIUM 134 mmol/L (136-145); TOTAL PROTEIN 7.2 gm/dL (6.4-8.2)
[2017-11-01 15:03] LABS: TROPONIN I < 0.015 ng/ml (<0.045)
[2017-11-01 16:28] VITALS: BP 180/81
[2017-11-01 16:55] LABS: BILIRUBIN 2+ (NEGATIVE); BLOOD NEGATIVE (NEGATIVE); CLARITY CLEAR (CLEAR); COLOR YELLOW (YELLOW); GLUCOSE NEGATIVE (NEGATIVE); KETONE TRACE (NEGATIVE); LEUKO ESTERASE NEGATIVE (NEGATIVE); NITRITE NEGATIVE (NEGATIVE); PH 5.5 (5.0-9.0); SPECIFIC GRAVITY >= 1.030 (1.005-1.030)
[2017-11-01 17:00] LABS: URINE AMPHETAMINES < 1000 (1000ng/ml); URINE BARBITURATES < 200 (200ng/ml); URINE BENZODIAZEPINES < 200 (200ng/ml); URINE CANNABINOIDS (THC) < 50 (50ng/ml); URINE COCAINE < 300 (300ng/ml); URINE METHADONE < 300 (300ng/ml); URINE OPIATES < 300 (300ng/ml)
[2017-11-01 17:02] LABS: URINE PHENCYCLIDINE < 25 (25ng/ml)
[2017-11-01 17:16] VITALS: BP 180/80
[2017-11-01 17:20] LABS: BACTERIA 1+; MUCOUS 2+
[2017-11-01 17:35] VITALS: BP 174/82
[2017-11-01] MEDS ORDERED: DICYCLOMINE HCL10 MG PO (18:22)
[2017-11-01 18:40] VITALS: BP 186/86
[2017-11-01] MEDS ORDERED: LOPRESSOR50 M1 PO (18:52)
[2017-11-01 20:00] VITALS: BP 203/89
[2017-11-02] VITALS: BP 116/50
[2017-11-02 03:30] LABS: BASO # 0.1 10*3/uL (0.0-0.1); BASO % 0.9 % (0.0-1.0); EOS # 0.3 10*3/uL (0.0-0.4); EOS % 6.2 % (1.0-4.0); HEMATOCRIT 30.1 % (42.0-52.0); HEMOGLOBIN 10.5 g/dl (14.0-18.0); LYMPH # 1.1 10*3/uL (1.3-4.4); LYMPH % 19.8 % (27.0-41.0); MEAN CELL VOLUME 90.1 fl (80.0-94.0); MEAN CORPUSCULAR HGB 31.4 pg (27.0-31.0); MEAN CORPUSCULAR HGB CONC 34.9 g/dl (33.0-37.0); MEAN PLATELET VOLUME 9.2 fl (9.6-12.3); MONO # 0.5 10*3/uL (0.1-1.0); MONO % 9.5 % (3.0-9.0); NEUT # 3.4 10*3/uL (2.3-7.9); NEUT % 63.4 % (47.0-73.0); PLATELET COUNT AUTOMATED 190 10*3/uL (130-400); RED BLOOD COUNT 3.34 10*6/uL (4.50-5.90); RED CELL DISTRI WIDTH 13.3 % (0-14.5); WHITE BLOOD COUNT 5.3 10*3/uL (4.8-10.8)
[2017-11-02 03:47] LABS: ALBUMIN 3.3 gm/dl (3.1-4.5); ALKALINE PHOSPHATASE 66 U/L (45-117); BUN 22 mg/dl (7-24); CHLORIDE 102 mmol/L (98-107); CREATININE 1.05 mg/dL (0.70-1.30); PHOSPHOROUS 3.8 mg/dL (2.5-4.9); POTASSIUM 4.2 mmol/L (3.5-5.1); SGOT/AST 11 IU/L (3-35); SGPT/ALT 20 U/L (12-78); SODIUM 137 mmol/L (136-145); TOTAL PROTEIN 5.9 gm/dL (6.4-8.2)
[2017-11-02 08:00] VITALS: BP 122/63
[2017-11-02 09:44] VITALS: BP 142/74
[2017-11-02 12:00] VITALS: BP 150/65
[2017-11-02 16:00] VITALS: BP 146/65
[2017-11-02 20:00] VITALS: BP 148/60
[2017-11-03] VITALS: BP 147/68
[2017-11-03 06:48] LABS: BASO % 0.6 % (0.0-1.0); EOS # 0.3 10*3/uL (0.0-0.4); EOS % 4.3 % (1.0-4.0); HEMATOCRIT 27.8 % (42.0-52.0); LYMPH # 0.8 10*3/uL (1.3-4.4); LYMPH % 12.1 % (27.0-41.0); MEAN CELL VOLUME 89.4 fl (80.0-94.0); MEAN CORPUSCULAR HGB 32.2 pg (27.0-31.0); MEAN PLATELET VOLUME 9.3 fl (9.6-12.3); MONO # 0.5 10*3/uL (0.1-1.0); MONO % 7.5 % (3.0-9.0); NEUT # 4.7 10*3/uL (2.3-7.9); NEUT % 75.2 % (47.0-73.0); PLATELET COUNT AUTOMATED 189 10*3/uL (130-400); RED BLOOD COUNT 3.11 10*6/uL (4.50-5.90); RED CELL DISTRI WIDTH 13.4 % (0-14.5); WHITE BLOOD COUNT 6.3 10*3/uL (4.8-10.8)
[2017-11-03 07:01] LABS: BUN 18 mg/dl (7-24); CHLORIDE 101 mmol/L (98-107); CREATININE 0.94 mg/dL (0.70-1.30); POTASSIUM 4.3 mmol/L (3.5-5.1); SODIUM 136 mmol/L (136-145)
[2017-11-03 12:00] VITALS: BP 132/58
[2017-11-03] MEDS ORDERED: ZESTRIL10 MG PO (14:33)
[2017-11-03] MEDS ORDERED: [UNRECOGNIZED DRUG - OTHER] PO (15:25)
== END 2017-11-03 15:56 | disposition home or self-care (01) | DRG 312 ==
LOC: ED 13:34 → EDHOLD 17:29 → 4E 17:29
PROVIDERS: Family Medicine; Internal Medicine
DX: I95.1 Orthostatic hypotension (principal); E11.51 Type 2 diabetes mellitus with diabetic peripheral angiopathy without gangrene; E79.9 Disorder of purine and pyrimidine metabolism, unspecified; E44.1 Mild protein-calorie malnutrition; E11.65 Type 2 diabetes mellitus with hyperglycemia; I07.1 Rheumatic tricuspid insufficiency; E87.1 Hypo-osmolality and hyponatremia; Z68.1 Body mass index [BMI] 19.9 or less, adult; R82.2 Biliuria; I16.0 Hypertensive urgency; R82.71 Bacteriuria; K64.9 Unspecified hemorrhoids; R62.7 Adult failure to thrive; D64.9 Anemia, unspecified; D72.810 Lymphocytopenia; I10 Essential (primary) hypertension; E78.1 Pure hyperglyceridemia; I73.9 Peripheral vascular disease, unspecified; I25.10 Atherosclerotic heart disease of native coronary artery without angina pectoris; K21.9 Gastro-esophageal reflux disease without esophagitis; I34.0 Nonrheumatic mitral (valve) insufficiency; E78.5 Hyperlipidemia, unspecified; N40.0 Benign prostatic hyperplasia without lower urinary tract symptoms; Z95.0 Presence of cardiac pacemaker; I25.2 Old myocardial infarction; Z87.891 Personal history of nicotine dependence; Z79.899 Other long term (current) drug therapy; Z88.8 Allergy status to other drugs, medicaments and biological substances; Z81.8 Family history of other mental and behavioral disorders

== ENCOUNTER → 2017-11-11 | Outpatient (CLI) | payer MEDICARE ==
[~2017-11-11] MED LIST changes: +DICYCLOMINE HCL10 MG PO; +LOPRESSOR50 M1 PO; +ZESTRIL10 MG PO; +[UNRECOGNIZED DRUG - OTHER] PO
== END | disposition home or self-care (01) ==
LOC: RESCLI 08:03
DX: Z09 Encounter for follow-up examination after completed treatment for conditions other than malignant neoplasm (principal); I10 Essential (primary) hypertension; I25.10 Atherosclerotic heart disease of native coronary artery without angina pectoris; K59.00 Constipation, unspecified; E78.5 Hyperlipidemia, unspecified; E11.9 Type 2 diabetes mellitus without complications; K21.9 Gastro-esophageal reflux disease without esophagitis; I73.9 Peripheral vascular disease, unspecified; N40.0 Benign prostatic hyperplasia without lower urinary tract symptoms; G62.9 Polyneuropathy, unspecified

== ENCOUNTER → 2017-12-21 | Outpatient (CLI) | payer MEDICARE ==
[~2017-12-21] MED LIST changes: +AMITRIPTYLINE25 MG PO; +BYETTA5 MCG/0.02 SC; +JANUVIA25 MG PO; +KEFLEX 500 MG E2 CAP PO; +Lopressor25 MG PO; +MIDODRINE HCL5 M1 PO; +PROAIR HFA8.5 GM INH
== END | disposition home or self-care (01) ==
LOC: LAB 10:52
DX: E11.9 Type 2 diabetes mellitus without complications (principal)

== ENCOUNTER → 2017-12-23 | Outpatient (CLI) | payer MEDICARE | END | disposition home or self-care (01) | LOC: RESCLI 02:13 | DX: I10 Essential (primary) hypertension (principal); E78.5 Hyperlipidemia, unspecified; E11.9 Type 2 diabetes mellitus without complications; K21.9 Gastro-esophageal reflux disease without esophagitis; I73.9 Peripheral vascular disease, unspecified; N40.0 Benign prostatic hyperplasia without lower urinary tract symptoms; I25.10 Atherosclerotic heart disease of native coronary artery without angina pectoris; I95.89 Other hypotension; R63.6 Underweight; E86.0 Dehydration; Z79.899 Other long term (current) drug therapy; Z95.5 Presence of coronary angioplasty implant and graft; Z88.8 Allergy status to other drugs, medicaments and biological substances ==

== ENCOUNTER → 2017-12-29 | Outpatient (CLI) | payer MEDICARE | END | disposition home or self-care (01) | LOC: US 13:26 | DX: I70.203 Unspecified atherosclerosis of native arteries of extremities, bilateral legs (principal); I70.0 Atherosclerosis of aorta; K59.00 Constipation, unspecified; R11.0 Nausea ==

== ENCOUNTER → 2018-01-05 | Outpatient (CLI) | payer MEDICARE ==
[2018-01-05 16:10] LABS: BILIRUBIN NEGATIVE (NEGATIVE); BLOOD NEGATIVE (NEGATIVE); CLARITY CLEAR (CLEAR); COLOR YELLOW (YELLOW); GLUCOSE TRACE (NEGATIVE); KETONE NEGATIVE (NEGATIVE); LEUKO ESTERASE NEGATIVE (NEGATIVE); NITRITE NEGATIVE (NEGATIVE); PH 5.5 (5.0-9.0); SPECIFIC GRAVITY >= 1.030 (1.005-1.030)
[2018-01-05 16:44] LABS: BACTERIA 1+; EPITHELIAL CELLS 0-2; MUCOUS 1+
== END | disposition home or self-care (01) ==
LOC: LAB 15:27
PROVIDERS: Internal Medicine
DX: R30.0 Dysuria (principal)

== ENCOUNTER → 2018-02-17 | Outpatient (CLI) | payer MEDICARE ==
--- NOTE | ~2018-02-17 | EKG ---
[place], [place] ELECTROCARDIOGRAM REPORT NAME: MARI HARRELL UNIT #: [id number] ROOM: DOCTOR: DIANA DRAFT REPORT BIRTHDATE: [birth year] [facility] Test Date: 2018-02-17 Test Time: 16:02:11 Pat Name: MARI HARRELL Department: Room: Gender: M [employer] Plant Operator: Rissa Cannon : 1950 Requested By: FRANNIE ISBELL Order Number: [id number] Reading MD: Kodak Wyile MD Measurements Intervals [place] Rate: 119 P: 63 IA: 130 QRS: 75 QRSD: 121 T: 18 QT: 338 QTc: 476 Interpretive Statements Sinus tachycardia Ventricular premature complex Right bundle branch block Compared to ECG 01/29/2018 12:35:38 Ventricular premature complex(es) now present. Low voltage limb leads. Electronically Signed On 02-21-2018 10:01:45 PST by Kodak Wylie MD CM:EKGRPT:ELECTROCARDIOGRAM REPORT 1602 1001 FRANNIE BALLESTEROS DRAFT REPORT FRANNIE ISBELL DO
== END | disposition home or self-care (01) ==
LOC: RESCLI 09:32
DX: R00.0 Tachycardia, unspecified (principal); Z79.899 Other long term (current) drug therapy

== ENCOUNTER → 2018-07-12 | Outpatient (CLI) | payer MEDICARE | END | disposition home or self-care (01) | LOC: RESCLI 02:35 | DX: K59.00 Constipation, unspecified (principal); I25.10 Atherosclerotic heart disease of native coronary artery without angina pectoris; N40.0 Benign prostatic hyperplasia without lower urinary tract symptoms; G62.9 Polyneuropathy, unspecified; E11.51 Type 2 diabetes mellitus with diabetic peripheral angiopathy without gangrene; E78.5 Hyperlipidemia, unspecified; K21.9 Gastro-esophageal reflux disease without esophagitis; J44.9 Chronic obstructive pulmonary disease, unspecified; I95.1 Orthostatic hypotension; I50.9 Heart failure, unspecified; I25.2 Old myocardial infarction; Z79.899 Other long term (current) drug therapy; Z86.2 Personal history of diseases of the blood and blood-forming organs and certain disorders involving the immune mechanism; Z88.8 Allergy status to other drugs, medicaments and biological substances; Z87.891 Personal history of nicotine dependence ==

== ENCOUNTER → 2018-11-28 | Outpatient (CLI) | payer MEDICARE ==
[~2018-11-28] MED LIST changes: +NEURONTIN300 MG PO
== END | disposition home or self-care (01) ==
LOC: RESCLI 08:30
DX: K59.00 Constipation, unspecified (principal); J44.9 Chronic obstructive pulmonary disease, unspecified; I95.1 Orthostatic hypotension; E11.9 Type 2 diabetes mellitus without complications; I25.10 Atherosclerotic heart disease of native coronary artery without angina pectoris; I73.9 Peripheral vascular disease, unspecified; N40.0 Benign prostatic hyperplasia without lower urinary tract symptoms; G62.9 Polyneuropathy, unspecified; K21.9 Gastro-esophageal reflux disease without esophagitis; E78.5 Hyperlipidemia, unspecified; Z79.899 Other long term (current) drug therapy; Z87.891 Personal history of nicotine dependence

== ENCOUNTER → 2019-02-06 | Outpatient (CLI) | payer MEDICARE ==
[2019-02-06 16:02] LABS: BASO # 0.1 10*3/uL (0.0-0.1); BASO % 0.9 % (0.0-1.0); EOS # 0.6 10*3/uL (0.0-0.4); EOS % 8.7 % (1.0-4.0); HEMATOCRIT 38.5 % (42.0-52.0); HEMOGLOBIN 12.6 g/dl (14.0-18.0); LYMPH % 15.4 % (27.0-41.0); MEAN CELL VOLUME 94.1 fl (80.0-94.0); MEAN CORPUSCULAR HGB 30.8 pg (27.0-31.0); MEAN CORPUSCULAR HGB CONC 32.7 g/dl (33.0-37.0); MEAN PLATELET VOLUME 10.2 fl (9.6-12.3); MONO # 0.5 10*3/uL (0.1-1.0); MONO % 7.2 % (3.0-9.0); NEUT # 4.6 10*3/uL (2.3-7.9); NEUT % 67.5 % (47.0-73.0); PLATELET COUNT AUTOMATED 185 10*3/uL (130-400); RED BLOOD COUNT 4.09 10*6/uL (4.50-5.90); RED CELL DISTRI WIDTH 13.4 % (0-14.5); WHITE BLOOD COUNT 6.8 10*3/uL (4.8-10.8)
[2019-02-06 16:16] LABS: ALBUMIN 3.9 gm/dl (3.1-4.5); CREATININE 1.61 mg/dL (0.70-1.30); TOTAL PROTEIN 7.4 gm/dL (6.4-8.2)
[2019-02-07 11:07] LABS: CREATININE,URINE 86.6 mg/dL (Not Estab.); MICRO ALBUMIN/CRE RATIO <3.5 (0.0-30.0)
== END | disposition home or self-care (01) ==
LOC: RESCLI 01:46
PROVIDERS: Family Medicine
DX: Z13.39 Encounter for screening examination for other mental health and behavioral disorders (principal); Z01.89 Encounter for other specified special examinations; Z13.31 Encounter for screening for depression; K59.00 Constipation, unspecified; I95.1 Orthostatic hypotension; I25.10 Atherosclerotic heart disease of native coronary artery without angina pectoris; J44.9 Chronic obstructive pulmonary disease, unspecified; G62.9 Polyneuropathy, unspecified; N40.0 Benign prostatic hyperplasia without lower urinary tract symptoms; K21.9 Gastro-esophageal reflux disease without esophagitis; E78.5 Hyperlipidemia, unspecified; I50.32 Chronic diastolic (congestive) heart failure; E11.51 Type 2 diabetes mellitus with diabetic peripheral angiopathy without gangrene; J40 Bronchitis, not specified as acute or chronic; Z28.21 Immunization not carried out because of patient refusal; Z87.891 Personal history of nicotine dependence; Z79.899 Other long term (current) drug therapy; Z88.8 Allergy status to other drugs, medicaments and biological substances

== ENCOUNTER → 2019-03-13 | Outpatient (CLI) | payer MEDICARE | END | disposition home or self-care (01) | LOC: RESCLI 01:01 | DX: K59.00 Constipation, unspecified (principal); I95.1 Orthostatic hypotension; I25.10 Atherosclerotic heart disease of native coronary artery without angina pectoris; J44.9 Chronic obstructive pulmonary disease, unspecified; G62.9 Polyneuropathy, unspecified; N40.0 Benign prostatic hyperplasia without lower urinary tract symptoms; E11.51 Type 2 diabetes mellitus with diabetic peripheral angiopathy without gangrene; K21.9 Gastro-esophageal reflux disease without esophagitis; E78.5 Hyperlipidemia, unspecified; I50.32 Chronic diastolic (congestive) heart failure; I71.4 Abdominal aortic aneurysm, without rupture; Z79.899 Other long term (current) drug therapy; Z87.891 Personal history of nicotine dependence ==

== ENCOUNTER → 2019-05-21 | Outpatient (CLI) | payer MEDICARE ==
[2019-05-21 15:20] LABS: BASO # 0.1 10*3/uL (0.0-0.1); BASO % 1.1 % (0.0-1.0); EOS # 0.4 10*3/uL (0.0-0.4); EOS % 4.6 % (1.0-4.0); HEMATOCRIT 42.9 % (42.0-52.0); HEMOGLOBIN 14.6 g/dl (14.0-18.0); LYMPH # 1.1 10*3/uL (1.3-4.4); LYMPH % 12.1 % (27.0-41.0); MEAN CELL VOLUME 92.1 fl (80.0-94.0); MEAN CORPUSCULAR HGB 31.3 pg (27.0-31.0); MEAN PLATELET VOLUME 10.3 fl (9.6-12.3); MONO # 0.7 10*3/uL (0.1-1.0); MONO % 7.6 % (3.0-9.0); NEUT # 6.7 10*3/uL (2.3-7.9); NEUT % 74.4 % (47.0-73.0); PLATELET COUNT AUTOMATED 197 10*3/uL (130-400); RED BLOOD COUNT 4.66 10*6/uL (4.50-5.90); RED CELL DISTRI WIDTH 13.4 % (0-14.5)
[2019-05-21 15:36] LABS: ALBUMIN 4.1 gm/dl (3.1-4.5); CREATININE 1.64 mg/dL (0.70-1.30); POTASSIUM 4.6 mmol/L (3.5-5.1); TOTAL PROTEIN 7.8 gm/dL (6.4-8.2)
== END | disposition home or self-care (01) ==
LOC: RESCLI 13:13
PROVIDERS: Hospitalist
DX: I95.1 Orthostatic hypotension (principal); E11.9 Type 2 diabetes mellitus without complications; E78.5 Hyperlipidemia, unspecified; G62.9 Polyneuropathy, unspecified; N40.0 Benign prostatic hyperplasia without lower urinary tract symptoms; I25.10 Atherosclerotic heart disease of native coronary artery without angina pectoris; I73.9 Peripheral vascular disease, unspecified; K21.9 Gastro-esophageal reflux disease without esophagitis; I71.4 Abdominal aortic aneurysm, without rupture; I11.0 Hypertensive heart disease with heart failure; I50.32 Chronic diastolic (congestive) heart failure; K59.00 Constipation, unspecified; J44.9 Chronic obstructive pulmonary disease, unspecified; Z95.5 Presence of coronary angioplasty implant and graft; Z79.899 Other long term (current) drug therapy; Z90.89 Acquired absence of other organs; Z87.891 Personal history of nicotine dependence; Z88.8 Allergy status to other drugs, medicaments and biological substances

== ENCOUNTER → 2019-07-31 | Outpatient (CLI) | payer MEDICARE ==
[2019-07-31 10:37] LABS: BUN 19 mg/dl (7-24); CHLORIDE 105 mmol/L (98-107); CREATININE 1.42 mg/dL (0.70-1.30); POTASSIUM 4.1 mmol/L (3.5-5.1); SODIUM 138 mmol/L (136-145)
== END | disposition home or self-care (01) ==
LOC: LAB 09:43
PROVIDERS: Internal Medicine
DX: I50.32 Chronic diastolic (congestive) heart failure (principal)

== ENCOUNTER → 2019-10-30 | Outpatient (CLI) | payer MEDICARE | END | disposition home or self-care (01) | LOC: RESCLI 05:45 | DX: I25.10 Atherosclerotic heart disease of native coronary artery without angina pectoris (principal); I10 Essential (primary) hypertension; J44.9 Chronic obstructive pulmonary disease, unspecified; E11.9 Type 2 diabetes mellitus without complications; I95.1 Orthostatic hypotension; K59.00 Constipation, unspecified; I50.32 Chronic diastolic (congestive) heart failure; G62.9 Polyneuropathy, unspecified; K21.9 Gastro-esophageal reflux disease without esophagitis; N40.0 Benign prostatic hyperplasia without lower urinary tract symptoms; I73.9 Peripheral vascular disease, unspecified; E78.5 Hyperlipidemia, unspecified; Z11.59 Encounter for screening for other viral diseases; Z01.00 Encounter for examination of eyes and vision without abnormal findings; Z79.899 Other long term (current) drug therapy; Z98.890 Other specified postprocedural states; Z87.891 Personal history of nicotine dependence; Z88.8 Allergy status to other drugs, medicaments and biological substances ==

== ENCOUNTER → 2019-12-13 | Outpatient (CLI) | payer MEDICARE | END | disposition home or self-care (01) | LOC: RESCLI 00:49 | PROVIDERS: ATTEND Internal Medicine | DX: M70.30 Other bursitis of elbow, unspecified elbow (principal); R42 Dizziness and giddiness; R53.83 Other fatigue; I11.0 Hypertensive heart disease with heart failure; I50.32 Chronic diastolic (congestive) heart failure; I25.10 Atherosclerotic heart disease of native coronary artery without angina pectoris; I95.1 Orthostatic hypotension; G62.9 Polyneuropathy, unspecified; K21.9 Gastro-esophageal reflux disease without esophagitis; N40.0 Benign prostatic hyperplasia without lower urinary tract symptoms; I73.9 Peripheral vascular disease, unspecified; E78.5 Hyperlipidemia, unspecified; J44.9 Chronic obstructive pulmonary disease, unspecified; E11.9 Type 2 diabetes mellitus without complications; R29.6 Repeated falls; I25.2 Old myocardial infarction; Z79.899 Other long term (current) drug therapy; Z95.828 Presence of other vascular implants and grafts; Z98.890 Other specified postprocedural states; Z87.891 Personal history of nicotine dependence; Z88.8 Allergy status to other drugs, medicaments and biological substances ==

== ENCOUNTER → 2019-12-14 | Outpatient (CLI) | payer MEDICARE ==
[2019-12-14 07:37] LABS: BASO # 0.1 10*3/uL (0.0-0.1); BASO % 0.9 % (0.0-1.0); EOS # 0.5 10*3/uL (0.0-0.4); EOS % 9.3 % (1.0-4.0); HEMATOCRIT 38.4 % (42.0-52.0); LYMPH # 0.7 10*3/uL (1.3-4.4); LYMPH % 13.3 % (27.0-41.0); MEAN CELL VOLUME 91.2 fl (80.0-94.0); MEAN CORPUSCULAR HGB 31.1 pg (27.0-31.0); MEAN CORPUSCULAR HGB CONC 34.1 g/dl (33.0-37.0); MEAN PLATELET VOLUME 9.9 fl (9.6-12.3); MONO # 0.6 10*3/uL (0.1-1.0); MONO % 10.2 % (3.0-9.0); NEUT # 3.6 10*3/uL (2.3-7.9); NEUT % 66.1 % (47.0-73.0); PLATELET COUNT AUTOMATED 187 10*3/uL (130-400); RED BLOOD COUNT 4.21 10*6/uL (4.50-5.90); RED CELL DISTRI WIDTH 13.4 % (0-14.5); WHITE BLOOD COUNT 5.5 10*3/uL (4.8-10.8)
[2019-12-14 08:10] LABS: ALBUMIN 4.2 gm/dl (3.1-4.5); CREATININE 1.54 mg/dL (0.70-1.30); POTASSIUM 4.3 mmol/L (3.5-5.1); TOTAL PROTEIN 7.6 gm/dL (6.4-8.2)
[2019-12-14 08:17] LABS: THYROID STIM HORMONE (HS) 2.66 uIU/ml (0.358-4.75)
== END | disposition home or self-care (01) ==
LOC: LAB 07:06
PROVIDERS: Internal Medicine; ATTEND Internal Medicine
DX: E11.9 Type 2 diabetes mellitus without complications (principal); R53.83 Other fatigue; E78.5 Hyperlipidemia, unspecified; Z11.59 Encounter for screening for other viral diseases

== ENCOUNTER → 2019-12-19 | Outpatient (CLI) | payer MEDICARE | END | disposition home or self-care (01) | LOC: ORTHO 00:56 | PROVIDERS: ATTEND Psychiatry & Neurology Psychiatry | DX: M79.89 Other specified soft tissue disorders (principal); M25.522 Pain in left elbow ==

== ENCOUNTER → 2019-12-20 | Outpatient (CLI) | payer MEDICARE | END | disposition home or self-care (01) | LOC: CARD 14:29 | PROVIDERS: ATTEND Student in an Organized Health Care Education/Training Program | DX: R42 Dizziness and giddiness (principal); Z79.899 Other long term (current) drug therapy ==

== ENCOUNTER → 2019-12-21 | Outpatient (CLI) | payer MEDICARE | END | disposition home or self-care (01) | LOC: US 01:24 | PROVIDERS: ATTEND Student in an Organized Health Care Education/Training Program | DX: R42 Dizziness and giddiness (principal) ==

== ENCOUNTER → 2020-01-08 | Outpatient (CLI) | payer MEDICARE | END | disposition home or self-care (01) | LOC: RESCLI 00:35 | PROVIDERS: ATTEND Internal Medicine | DX: E11.9 Type 2 diabetes mellitus without complications (principal); I11.0 Hypertensive heart disease with heart failure; I50.32 Chronic diastolic (congestive) heart failure; K59.00 Constipation, unspecified; G62.9 Polyneuropathy, unspecified; I25.10 Atherosclerotic heart disease of native coronary artery without angina pectoris; I95.1 Orthostatic hypotension; K21.9 Gastro-esophageal reflux disease without esophagitis; N40.0 Benign prostatic hyperplasia without lower urinary tract symptoms; I73.9 Peripheral vascular disease, unspecified; E78.5 Hyperlipidemia, unspecified; J44.9 Chronic obstructive pulmonary disease, unspecified; Z79.899 Other long term (current) drug therapy; Z98.890 Other specified postprocedural states; Z87.891 Personal history of nicotine dependence; Z88.8 Allergy status to other drugs, medicaments and biological substances ==

== ENCOUNTER → 2020-04-23 | Outpatient (CLI) | payer MEDICARE | END | disposition home or self-care (01) | LOC: RESCLI 01:27 | PROVIDERS: ATTEND Internal Medicine Nephrology | DX: I11.0 Hypertensive heart disease with heart failure (principal); I50.32 Chronic diastolic (congestive) heart failure; I25.10 Atherosclerotic heart disease of native coronary artery without angina pectoris; I95.1 Orthostatic hypotension; E11.9 Type 2 diabetes mellitus without complications; J44.9 Chronic obstructive pulmonary disease, unspecified; G62.9 Polyneuropathy, unspecified; K21.9 Gastro-esophageal reflux disease without esophagitis; N40.0 Benign prostatic hyperplasia without lower urinary tract symptoms; I73.9 Peripheral vascular disease, unspecified; E78.5 Hyperlipidemia, unspecified; Z79.899 Other long term (current) drug therapy; Z88.8 Allergy status to other drugs, medicaments and biological substances ==

== ENCOUNTER → 2020-05-06 | Outpatient (CLI) | payer MEDICARE ==
[2020-05-06 15:44] LABS: BASO % 0.3 % (0.0-1.0); EOS # 0.4 10*3/uL (0.0-0.4); EOS % 4.7 % (1.0-4.0); HEMATOCRIT 39.1 % (42.0-52.0); LYMPH # 0.9 10*3/uL (1.3-4.4); LYMPH % 10.2 % (27.0-41.0); MEAN CELL VOLUME 90.5 fl (80.0-94.0); MEAN CORPUSCULAR HGB 29.9 pg (27.0-31.0); MEAN PLATELET VOLUME 10.4 fl (9.6-12.3); MONO # 0.7 10*3/uL (0.1-1.0); MONO % 7.8 % (3.0-9.0); NEUT # 6.9 10*3/uL (2.3-7.9); NEUT % 76.7 % (47.0-73.0); PLATELET COUNT AUTOMATED 169 10*3/uL (130-400); RED BLOOD COUNT 4.32 10*6/uL (4.50-5.90); RED CELL DISTRI WIDTH 13.4 % (0-14.5)
[2020-05-06 16:15] LABS: ALBUMIN 3.9 gm/dl (3.1-4.5); CREATININE 1.65 mg/dL (0.70-1.30); POTASSIUM 4.1 mmol/L (3.5-5.1)
== END | disposition home or self-care (01) ==
LOC: LAB 15:13
PROVIDERS: ATTEND Internal Medicine
DX: I50.32 Chronic diastolic (congestive) heart failure (principal); E11.9 Type 2 diabetes mellitus without complications; E78.5 Hyperlipidemia, unspecified

== ENCOUNTER → 2020-05-30 | Outpatient (CLI) | payer MEDICARE | END | disposition home or self-care (01) | LOC: RESCLI 01:06 | PROVIDERS: ATTEND Internal Medicine | DX: K21.9 Gastro-esophageal reflux disease without esophagitis (principal); N40.0 Benign prostatic hyperplasia without lower urinary tract symptoms; I11.0 Hypertensive heart disease with heart failure; I73.9 Peripheral vascular disease, unspecified; E78.5 Hyperlipidemia, unspecified; I50.32 Chronic diastolic (congestive) heart failure; J44.9 Chronic obstructive pulmonary disease, unspecified; G62.9 Polyneuropathy, unspecified; I25.10 Atherosclerotic heart disease of native coronary artery without angina pectoris; E11.9 Type 2 diabetes mellitus without complications; I95.1 Orthostatic hypotension; Z79.899 Other long term (current) drug therapy; Z87.891 Personal history of nicotine dependence; Z88.8 Allergy status to other drugs, medicaments and biological substances ==

== ENCOUNTER → 2020-09-09 | Outpatient (CLI) | payer MEDICARE | END | disposition home or self-care (01) | LOC: RESCLI 00:54 | PROVIDERS: ATTEND Internal Medicine | DX: G62.9 Polyneuropathy, unspecified (principal); J44.9 Chronic obstructive pulmonary disease, unspecified; I25.10 Atherosclerotic heart disease of native coronary artery without angina pectoris; E11.9 Type 2 diabetes mellitus without complications; E78.5 Hyperlipidemia, unspecified; K21.9 Gastro-esophageal reflux disease without esophagitis; N40.0 Benign prostatic hyperplasia without lower urinary tract symptoms; I11.0 Hypertensive heart disease with heart failure; I50.32 Chronic diastolic (congestive) heart failure; I95.1 Orthostatic hypotension; Z98.890 Other specified postprocedural states; Z95.828 Presence of other vascular implants and grafts; Z87.891 Personal history of nicotine dependence; Z88.8 Allergy status to other drugs, medicaments and biological substances ==

== ENCOUNTER → 2021-01-23 | Outpatient (CLI) | payer MEDICARE | END | disposition home or self-care (01) | LOC: RESCLI 00:14 | PROVIDERS: ATTEND Internal Medicine | DX: E11.9 Type 2 diabetes mellitus without complications (principal); I25.10 Atherosclerotic heart disease of native coronary artery without angina pectoris; I10 Essential (primary) hypertension; N40.0 Benign prostatic hyperplasia without lower urinary tract symptoms; E78.5 Hyperlipidemia, unspecified; K21.9 Gastro-esophageal reflux disease without esophagitis; J44.9 Chronic obstructive pulmonary disease, unspecified; I50.32 Chronic diastolic (congestive) heart failure; M25.512 Pain in left shoulder; I95.1 Orthostatic hypotension; I73.9 Peripheral vascular disease, unspecified; G62.9 Polyneuropathy, unspecified; K52.9 Noninfective gastroenteritis and colitis, unspecified; Z79.899 Other long term (current) drug therapy ==

== ENCOUNTER → 2021-06-02 | Outpatient (CLI) | payer MEDICARE | END | disposition home or self-care (01) | LOC: RESCLI 00:29 | PROVIDERS: ATTEND Internal Medicine | DX: R05.9 Cough, unspecified (principal); G62.9 Polyneuropathy, unspecified; N40.0 Benign prostatic hyperplasia without lower urinary tract symptoms; J44.9 Chronic obstructive pulmonary disease, unspecified; E11.9 Type 2 diabetes mellitus without complications; I95.1 Orthostatic hypotension; I10 Essential (primary) hypertension; I25.10 Atherosclerotic heart disease of native coronary artery without angina pectoris; I73.9 Peripheral vascular disease, unspecified; E78.5 Hyperlipidemia, unspecified; Z79.899 Other long term (current) drug therapy; Z87.891 Personal history of nicotine dependence; Z88.8 Allergy status to other drugs, medicaments and biological substances ==

== ENCOUNTER → 2021-10-19 | Outpatient (CLI) | payer MEDICARE | END | disposition home or self-care (01) | LOC: RESCLI 14:44 | PROVIDERS: ATTEND Internal Medicine | DX: I73.9 Peripheral vascular disease, unspecified (principal); I50.9 Heart failure, unspecified; E11.9 Type 2 diabetes mellitus without complications; J44.9 Chronic obstructive pulmonary disease, unspecified; I11.0 Hypertensive heart disease with heart failure; I25.10 Atherosclerotic heart disease of native coronary artery without angina pectoris; E78.5 Hyperlipidemia, unspecified; N40.0 Benign prostatic hyperplasia without lower urinary tract symptoms; I95.1 Orthostatic hypotension; G62.9 Polyneuropathy, unspecified; N52.9 Male erectile dysfunction, unspecified; K21.9 Gastro-esophageal reflux disease without esophagitis; R00.1 Bradycardia, unspecified; Z88.8 Allergy status to other drugs, medicaments and biological substances; Z79.899 Other long term (current) drug therapy; Z79.82 Long term (current) use of aspirin ==

== ENCOUNTER → 2021-10-20 | Outpatient (CLI) | payer MEDICARE ==
[2021-10-20 09:01] LABS: BASO # 0.1 10*3/uL (0.0-0.1); BASO % 0.9 % (0.0-1.0); EOS # 0.6 10*3/uL (0.0-0.4); HEMATOCRIT 45.3 % (42.0-52.0); LYMPH # 0.8 10*3/uL (1.3-4.4); LYMPH % 12.8 % (27.0-41.0); MEAN CELL VOLUME 91.7 fl (80.0-94.0); MEAN CORPUSCULAR HGB 30.8 pg (27.0-31.0); MEAN CORPUSCULAR HGB CONC 33.6 g/dl (33.0-37.0); MEAN PLATELET VOLUME 10.4 fl (9.6-12.3); MONO # 0.6 10*3/uL (0.1-1.0); MONO % 8.8 % (3.0-9.0); NEUT # 4.3 10*3/uL (2.3-7.9); NEUT % 68.2 % (47.0-73.0); PLATELET COUNT AUTOMATED 145 10*3/uL (130-400); RED BLOOD COUNT 4.94 10*6/uL (4.50-5.90); RED CELL DISTRI WIDTH 13.7 % (0-14.5); WHITE BLOOD COUNT 6.4 10*3/uL (4.8-10.8)
[2021-10-20 09:22] LABS: CREATININE 1.51 mg/dL (0.70-1.30); POTASSIUM 4.6 mmol/L (3.5-5.1)
[2021-10-20 09:23] LABS: TOTAL PROTEIN 6.9 gm/dL (6.4-8.2)
[2021-10-23 14:07] LABS: TESTOSTERONE FREE, (DIRECT) 7.7 pg/mL (6.6-18.1)
== END | disposition home or self-care (01) ==
LOC: LAB 08:33
PROVIDERS: Student in an Organized Health Care Education/Training Program; ATTEND Internal Medicine
DX: E11.9 Type 2 diabetes mellitus without complications (principal); E78.5 Hyperlipidemia, unspecified; N52.9 Male erectile dysfunction, unspecified

== ENCOUNTER 2021-11-16 09:05 | Emergency (ER) | payer MEDICARE ==
[~2021-11-16] VITALS: Ht 172.7 cm; Wt 66.7 kg
[2021-11-16 09:20] VITALS: BP 78/44
[2021-11-16 09:25] VITALS: BP 86/60
[2021-11-16 10:03] LABS: BASO # 0.1 10*3/uL (0.0-0.1); BASO % 0.7 % (0.0-1.0); EOS # 0.5 10*3/uL (0.0-0.4); EOS % 6.5 % (1.0-4.0); HEMATOCRIT 42.5 % (42.0-52.0); LYMPH # 0.8 10*3/uL (1.3-4.4); LYMPH % 10.4 % (27.0-41.0); MEAN CELL VOLUME 89.5 fl (80.0-94.0); MEAN CORPUSCULAR HGB 31.6 pg (27.0-31.0); MEAN CORPUSCULAR HGB CONC 35.3 g/dl (33.0-37.0); MEAN PLATELET VOLUME 10.6 fl (9.6-12.3); MONO # 0.5 10*3/uL (0.1-1.0); NEUT # 5.6 10*3/uL (2.3-7.9); NEUT % 75.3 % (47.0-73.0); PLATELET COUNT AUTOMATED 166 10*3/uL (130-400); RED BLOOD COUNT 4.75 10*6/uL (4.50-5.90); RED CELL DISTRI WIDTH 13.4 % (0-14.5); WHITE BLOOD COUNT 7.4 10*3/uL (4.8-10.8)
[2021-11-16] MEDS ORDERED: LASIX20 MG PO (10:12)
[2021-11-16] MEDS ORDERED: GABAPENTIN600 MG PO (10:12)
[2021-11-16] MEDS ORDERED: JARDIANCE25 MG PO (10:13)
[2021-11-16] MEDS ORDERED: LISINOPRIL5 MG PO (10:13)
[2021-11-16] MEDS ORDERED: ASPIRIN CHEWABL81 MG PO (10:13)
[2021-11-16] MEDS ORDERED: LIPITOR40 MG PO (10:14)
[2021-11-16] MEDS ORDERED: EFFEXOR XR37.5 MG PO (10:14)
[2021-11-16 10:19] LABS: ACT PARTIAL THROMBO TIME 27.9 SECONDS (20.0-32.1)
[2021-11-16 10:20] LABS: CREATININE 1.95 mg/dL (0.70-1.30); POTASSIUM 5.1 mmol/L (3.5-5.1); TOTAL PROTEIN 6.8 gm/dL (6.4-8.2)
[2021-11-16 10:39] VITALS: BP 119/55
[2021-11-16 11:46] VITALS: BP 135/80
== END 2021-11-16 12:32 | disposition admitted as inpatient to this hospital (09) ==
LOC: ED 09:05 → EDHOLD 12:23 → ED 12:32
PROVIDERS: Emergency Medicine
DX: I95.1 Orthostatic hypotension (principal); R42 Dizziness and giddiness; Z79.899 Other long term (current) drug therapy; Z90.89 Acquired absence of other organs; Z95.0 Presence of cardiac pacemaker; Z95.5 Presence of coronary angioplasty implant and graft; Z87.891 Personal history of nicotine dependence

== ENCOUNTER → 2021-11-19 | Outpatient (CLI) | payer MEDICARE ==
[~2021-11-19] MED LIST changes: +EFFEXOR XR37.5 MG PO; +GABAPENTIN600 MG PO; +JARDIANCE25 MG PO; +LASIX20 MG PO; +LIPITOR40 MG PO; +LISINOPRIL5 MG PO
== END | disposition home or self-care (01) ==
LOC: CARD 11-06 08:00
PROVIDERS: ATTEND Student in an Organized Health Care Education/Training Program
DX: R00.1 Bradycardia, unspecified (principal)

== ENCOUNTER → 2022-01-25 | Outpatient (CLI) | payer MEDICARE | END | disposition home or self-care (01) | LOC: RESCLI 01:56 | PROVIDERS: ATTEND Internal Medicine | DX: Z23 Encounter for immunization (principal); I11.0 Hypertensive heart disease with heart failure; I50.9 Heart failure, unspecified; J44.9 Chronic obstructive pulmonary disease, unspecified; I25.10 Atherosclerotic heart disease of native coronary artery without angina pectoris; I25.2 Old myocardial infarction; K21.9 Gastro-esophageal reflux disease without esophagitis; E11.51 Type 2 diabetes mellitus with diabetic peripheral angiopathy without gangrene; I95.1 Orthostatic hypotension; N40.0 Benign prostatic hyperplasia without lower urinary tract symptoms; G62.9 Polyneuropathy, unspecified; Z95.5 Presence of coronary angioplasty implant and graft; Z79.899 Other long term (current) drug therapy ==

== ENCOUNTER → 2022-03-09 | Outpatient (CLI) | payer MEDICARE | END | disposition home or self-care (01) | LOC: RESCLI 03:41 | PROVIDERS: ATTEND Internal Medicine | DX: I11.0 Hypertensive heart disease with heart failure (principal); I50.9 Heart failure, unspecified; I25.10 Atherosclerotic heart disease of native coronary artery without angina pectoris; J30.2 Other seasonal allergic rhinitis; E78.5 Hyperlipidemia, unspecified; E11.9 Type 2 diabetes mellitus without complications; N40.0 Benign prostatic hyperplasia without lower urinary tract symptoms; I73.9 Peripheral vascular disease, unspecified; G62.9 Polyneuropathy, unspecified; K21.9 Gastro-esophageal reflux disease without esophagitis; Z98.890 Other specified postprocedural states; Z95.5 Presence of coronary angioplasty implant and graft; Z87.891 Personal history of nicotine dependence; Z88.9 Allergy status to unspecified drugs, medicaments and biological substances; Z79.899 Other long term (current) drug therapy ==

== ENCOUNTER → 2022-07-26 | Outpatient (CLI) | payer MEDICARE ==
[2022-07-26 09:55] LABS: CHOLESTEROL 157 mg/dL (<200); LDL CHOLESTEROL 96 mg/dL (9-159); TRIGLYCERIDES 95 mg/dl (<150)
== END | disposition home or self-care (01) ==
LOC: RESCLI 01:44
PROVIDERS: Student in an Organized Health Care Education/Training Program; ATTEND Internal Medicine
DX: E11.9 Type 2 diabetes mellitus without complications (principal); J30.2 Other seasonal allergic rhinitis; J44.9 Chronic obstructive pulmonary disease, unspecified; I73.9 Peripheral vascular disease, unspecified; G62.9 Polyneuropathy, unspecified; I10 Essential (primary) hypertension; I25.10 Atherosclerotic heart disease of native coronary artery without angina pectoris; E78.5 Hyperlipidemia, unspecified; K21.9 Gastro-esophageal reflux disease without esophagitis; Z98.890 Other specified postprocedural states; Z95.5 Presence of coronary angioplasty implant and graft; Z87.891 Personal history of nicotine dependence; Z79.899 Other long term (current) drug therapy

== ENCOUNTER → 2023-01-11 | Outpatient (CLI) | payer MEDICARE | END | disposition home or self-care (01) | LOC: RESCLI 00:36 | PROVIDERS: ATTEND Internal Medicine | DX: J44.1 Chronic obstructive pulmonary disease with (acute) exacerbation (principal); E11.9 Type 2 diabetes mellitus without complications; I73.9 Peripheral vascular disease, unspecified; G62.9 Polyneuropathy, unspecified; E78.5 Hyperlipidemia, unspecified; I11.0 Hypertensive heart disease with heart failure; I50.9 Heart failure, unspecified; I25.10 Atherosclerotic heart disease of native coronary artery without angina pectoris; K21.9 Gastro-esophageal reflux disease without esophagitis; N40.0 Benign prostatic hyperplasia without lower urinary tract symptoms; Z87.891 Personal history of nicotine dependence; Z98.890 Other specified postprocedural states; Z79.899 Other long term (current) drug therapy ==

== ENCOUNTER → 2023-01-22 | Outpatient (CLI) | payer MEDICARE ==
[2023-01-22 09:18] LABS: BASO # 0.1 10*3/uL (0.0-0.1); BASO % 0.8 % (0.0-1.0); EOS # 0.7 10*3/uL (0.0-0.4); EOS % 9.5 % (1.0-4.0); HEMATOCRIT 43.8 % (42.0-52.0); LYMPH # 0.8 10*3/uL (1.3-4.4); LYMPH % 11.4 % (27.0-41.0); MEAN CELL VOLUME 91.4 fl (80.0-94.0); MEAN CORPUSCULAR HGB 31.9 pg (27.0-31.0); MEAN CORPUSCULAR HGB CONC 34.9 g/dl (33.0-37.0); MEAN PLATELET VOLUME 10.8 fl (9.6-12.3); MONO # 0.6 10*3/uL (0.1-1.0); MONO % 7.8 % (3.0-9.0); NEUT # 5.2 10*3/uL (2.3-7.9); NEUT % 70.2 % (47.0-73.0); PLATELET COUNT AUTOMATED 148 10*3/uL (130-400); RED BLOOD COUNT 4.79 10*6/uL (4.50-5.90); RED CELL DISTRI WIDTH 13.9 % (0-14.5); WHITE BLOOD COUNT 7.4 10*3/uL (4.8-10.8)
[2023-01-22 09:28] LABS: URINE CREATININE RANDOM 72.96 mg/dL
[2023-01-22 10:36] LABS: POTASSIUM 5.6 mmol/L (3.4-5.1); TOTAL PROTEIN 6.8 gm/dL (6.0-8.0)
== END | disposition home or self-care (01) ==
LOC: LAB 07:53
PROVIDERS: Student in an Organized Health Care Education/Training Program; ATTEND Student in an Organized Health Care Education/Training Program
DX: J44.1 Chronic obstructive pulmonary disease with (acute) exacerbation (principal); E11.9 Type 2 diabetes mellitus without complications; E78.5 Hyperlipidemia, unspecified; Z00.00 Encounter for general adult medical examination without abnormal findings

== ENCOUNTER → 2023-06-27 | Outpatient (CLI) | payer MEDICARE | END | disposition home or self-care (01) | LOC: RESCLI 00:34 | PROVIDERS: ATTEND Internal Medicine | DX: J44.1 Chronic obstructive pulmonary disease with (acute) exacerbation (principal); I10 Essential (primary) hypertension; E11.9 Type 2 diabetes mellitus without complications; N40.0 Benign prostatic hyperplasia without lower urinary tract symptoms; J44.9 Chronic obstructive pulmonary disease, unspecified; G62.9 Polyneuropathy, unspecified; I73.9 Peripheral vascular disease, unspecified; I25.10 Atherosclerotic heart disease of native coronary artery without angina pectoris; E78.5 Hyperlipidemia, unspecified; Z79.899 Other long term (current) drug therapy ==

== ENCOUNTER → 2024-02-09 | Outpatient (CLI) | payer MEDICARE | END | disposition home or self-care (01) | LOC: RESCLI 09:49 → RAD 09:49 | PROVIDERS: ATTEND Student in an Organized Health Care Education/Training Program | DX: K21.9 Gastro-esophageal reflux disease without esophagitis (principal); M21.371 Foot drop, right foot; N40.0 Benign prostatic hyperplasia without lower urinary tract symptoms; E11.40 Type 2 diabetes mellitus with diabetic neuropathy, unspecified; I25.10 Atherosclerotic heart disease of native coronary artery without angina pectoris; E11.51 Type 2 diabetes mellitus with diabetic peripheral angiopathy without gangrene; E78.5 Hyperlipidemia, unspecified; I11.0 Hypertensive heart disease with heart failure; I50.9 Heart failure, unspecified; K30 Functional dyspepsia; L98.9 Disorder of the skin and subcutaneous tissue, unspecified; Z98.890 Other specified postprocedural states; Z88.8 Allergy status to other drugs, medicaments and biological substances; Z87.891 Personal history of nicotine dependence; Z95.5 Presence of coronary angioplasty implant and graft; Z79.899 Other long term (current) drug therapy ==

== ENCOUNTER → 2024-02-14 | Outpatient (CLI) | payer MEDICARE ==
[2024-02-14 09:09] LABS: BASO # 0.1 10*3/uL (0.0-0.1); EOS # 0.7 10*3/uL (0.0-0.4); EOS % 9.9 % (1.0-4.0); HEMATOCRIT 47.7 % (42.0-52.0); MEAN CORPUSCULAR HGB CONC 33.8 g/dl (33.0-37.0); MEAN PLATELET VOLUME 10.2 fl (9.6-12.3); MONO # 0.5 10*3/uL (0.1-1.0); MONO % 6.9 % (3.0-9.0); NEUT # 4.8 10*3/uL (2.3-7.9); NEUT % 71.9 % (47.0-73.0); PLATELET COUNT AUTOMATED 145 10*3/uL (130-400); RED BLOOD COUNT 5.36 10*6/uL (4.50-5.90); RED CELL DISTRI WIDTH 14.2 % (0-14.5); WHITE BLOOD COUNT 6.7 10*3/uL (4.8-10.8)
[2024-02-14 09:35] LABS: POTASSIUM 4.8 mmol/L (3.4-5.1); TOTAL PROTEIN 6.9 gm/dL (6.0-8.0)
== END | disposition home or self-care (01) ==
LOC: LAB 08:43
PROVIDERS: Student in an Organized Health Care Education/Training Program; ATTEND Internal Medicine
DX: M48.061 Spinal stenosis, lumbar region without neurogenic claudication (principal); M21.371 Foot drop, right foot; E11.9 Type 2 diabetes mellitus without complications; I10 Essential (primary) hypertension; I25.10 Atherosclerotic heart disease of native coronary artery without angina pectoris; Z95.5 Presence of coronary angioplasty implant and graft

== ENCOUNTER → 2024-02-17 | Outpatient (CLI) | payer MEDICARE | END | disposition home or self-care (01) | LOC: US 01:59 → CT 11:00 | PROVIDERS: ATTEND Internal Medicine | DX: M21.371 Foot drop, right foot (principal); G93.89 Other specified disorders of brain; K30 Functional dyspepsia ==

== ENCOUNTER → 2024-05-10 | Outpatient (CLI) | payer MEDICARE | END | disposition home or self-care (01) | LOC: RESCLI 00:34 | PROVIDERS: ATTEND Student in an Organized Health Care Education/Training Program | DX: I25.10 Atherosclerotic heart disease of native coronary artery without angina pectoris (principal); I10 Essential (primary) hypertension; E11.51 Type 2 diabetes mellitus with diabetic peripheral angiopathy without gangrene; J44.9 Chronic obstructive pulmonary disease, unspecified; E11.9 Type 2 diabetes mellitus without complications; K21.9 Gastro-esophageal reflux disease without esophagitis; N40.0 Benign prostatic hyperplasia without lower urinary tract symptoms; E78.5 Hyperlipidemia, unspecified; M21.371 Foot drop, right foot; G93.5 Compression of brain; Z98.890 Other specified postprocedural states; Z79.899 Other long term (current) drug therapy; Z79.02 Long term (current) use of antithrombotics/antiplatelets ==

== ENCOUNTER → 2024-09-13 | Outpatient (CLI) | payer MEDICARE | END | disposition home or self-care (01) | LOC: RESCLI 10:18 | PROVIDERS: ATTEND Internal Medicine | DX: J44.1 Chronic obstructive pulmonary disease with (acute) exacerbation (principal); J32.9 Chronic sinusitis, unspecified; E78.5 Hyperlipidemia, unspecified; I73.9 Peripheral vascular disease, unspecified; I25.10 Atherosclerotic heart disease of native coronary artery without angina pectoris; N40.0 Benign prostatic hyperplasia without lower urinary tract symptoms; G62.9 Polyneuropathy, unspecified; E11.9 Type 2 diabetes mellitus without complications; I10 Essential (primary) hypertension; K21.9 Gastro-esophageal reflux disease without esophagitis; J44.9 Chronic obstructive pulmonary disease, unspecified; Z79.899 Other long term (current) drug therapy; Z88.8 Allergy status to other drugs, medicaments and biological substances; Z98.890 Other specified postprocedural states ==

== ENCOUNTER → 2024-11-01 | Outpatient (CLI) | payer MEDICARE ==
[~2024-11-01] MED LIST changes: +AMLODIPINE BESYL5 MG PO; +CLOPIDOGREL75 MG PO; +DEXCOM G7 SENS1 EACH MC; +HYDROXYZINE PAM25 M1 PO; +JARDIANCE10 MG PO; +LASIX40 MG PO; +VALSARTAN80 MG PO
== END | disposition home or self-care (01) ==
LOC: RESCLI 03:05
PROVIDERS: ATTEND Internal Medicine
DX: I50.20 Unspecified systolic (congestive) heart failure (principal); I25.10 Atherosclerotic heart disease of native coronary artery without angina pectoris; E78.5 Hyperlipidemia, unspecified; N40.0 Benign prostatic hyperplasia without lower urinary tract symptoms; E11.9 Type 2 diabetes mellitus without complications; G62.9 Polyneuropathy, unspecified; J44.9 Chronic obstructive pulmonary disease, unspecified; Z84.89 Family history of other specified conditions; Z79.84 Long term (current) use of oral hypoglycemic drugs; Z79.899 Other long term (current) drug therapy; Z88.8 Allergy status to other drugs, medicaments and biological substances

== ENCOUNTER → 2025-01-30 | Outpatient (CLI) | payer MEDICARE | END | disposition home or self-care (01) | LOC: RESCLI 02:32 | PROVIDERS: ATTEND Internal Medicine | DX: M18.11 Unilateral primary osteoarthritis of first carpometacarpal joint, right hand (principal); I11.0 Hypertensive heart disease with heart failure; I50.20 Unspecified systolic (congestive) heart failure; I25.10 Atherosclerotic heart disease of native coronary artery without angina pectoris; E11.42 Type 2 diabetes mellitus with diabetic polyneuropathy; E78.5 Hyperlipidemia, unspecified; K21.9 Gastro-esophageal reflux disease without esophagitis; N40.0 Benign prostatic hyperplasia without lower urinary tract symptoms; H53.8 Other visual disturbances; Z79.899 Other long term (current) drug therapy; Z98.890 Other specified postprocedural states ==